=== PATIENT | male | born 1960 | race Caucasian/White ===

== ENCOUNTER → 2019-04-04 08:10 | Outpatient (CLI) | payer BC ==
--- NOTE | 2019-04-04 12:29 | NUR ---
TIME OUT PERFORMED @ [address] GARCIA & ELIAS MURILLO RTR. PATIENT, , & PROCEDURE VERIFIED
== END | disposition home or self-care (01) ==
LOC: D.RAD 08:10
PROVIDERS: ATTEND Family Medicine
DX: M54.5 Low back pain (principal)